=== PATIENT | male | born 1940 | race Caucasian/White ===

== ENCOUNTER 2017-04-22 08:50 | Emergency (ER) | payer MEDICARE, OTHER ==
[~2017-04-22] VITALS: Ht 172.7 cm; Wt 88.0 kg
[~2017-04-22 08:50] MED LIST: AMOXICILLIN/CL875 MG OR; ASPIRIN EC LOW81 MG PO; DITROPAN OR; DOXAZOSIN4 M1 PO; FLOMAX0.4 M1 PO; PRAVASTATIN SOD40 MG OR; PRILOSEC OTC20 MG OR
[2017-04-22] MEDS ORDERED: ZESTRIL5 M1 PO (09:30)
[2017-04-22 09:36] LABS: HEMATOCRIT 43.8 % (39.0-50.0); HEMOGLOBIN 15.1 g/dl (14.0-18.0); IMMATURE GRANULOCYTES 1.3 % (0.0-1.0); MEAN CELL VOLUME 97.1 fL CALC (80.0-100.0); MEAN CORPUSCULAR HGB 33.5 pG CALC (26.0-32.0); MEAN CORPUSCULAR HGB CONC 34.5 g/L CALC (32.0-36.0); NEUT# 2.17 thou/uL (1.82-7.42); RED BLOOD COUNT 4.51 mill/uL (4.70-6.10); RED CELL DISTRI WIDTH 13.5 % (11.5-15.5)
[2017-04-22 09:43] LABS: ALBUMIN 4.4 g/dL (3.2-5.0); ALKALINE PHOSPHATASE 103 u/l (38-126); ANION GAP 15 (6-22 (CALC)); BILIRUBIN, TOTAL 0.7 mg/dL (0.0-1.4); BUN 17 mg/dL (8-23); BUN/CREATININE RATIO 20 (12-20 (CALC)); CARBON DIOXIDE 26 mmol/l (22-30); CHLORIDE 107 mmol/l (95-108); CREATININE 0.9 mg/dL (0.7-1.3); GFR > 60 ML/MIN (>=60 (CALC)); GFR FOR AFR.AMER. > 60 ML/MIN (>=60 (CALC)); GLUCOSE 185 mg/dL (82-115); POTASSIUM 4.5 mmol/l (3.5-5.1); SGOT/AST 47 u/l (19-48); SGPT/ALT 58 u/l (11-66); SODIUM 143 mmol/l (137-146); TOTAL PROTEIN 7.3 g/dL (6.3-8.2)
[2017-04-22 09:55] LABS: MYOGLOBIN 41 ng/mL (0 - 121)
[2017-04-22 10:47] VITALS: BP 163/75
== END 2017-04-22 10:55 | disposition home or self-care (01) ==
LOC: ED 08:50
PROVIDERS: Emergency Medicine
DX: I10 Essential (primary) hypertension (principal); M47.9 Spondylosis, unspecified; C61 Malignant neoplasm of prostate